=== PATIENT | female | born 1930 | race Caucasian/White ===

== ENCOUNTER → 2017-03-07 | Outpatient (CLI) | payer MEDICARE, BC ==
[~2017-03-07] MED LIST: ALDACTONE25 MG PO; ASPIRIN EC81 MG; ASPIRIN LO-DOSE81 MG PO; CENTRUM SILVER1 EAC4 PO; CENTRUM SILVER1 TAB PO; CITRACAL-VIT D1 EAC1 PO; COZAAR25 MG PO; ELIQUIS5 MG PO; LEVOTHROID (SY50 MCG PO; LIPITOR40 MG PO; MULTAQ400 MG PO; NORCO 5-325 TA1 EACH PO; NORVASC5 MG PO; PROLIA60 MG/ML IM; XALATAN2.5 ML OPHTH; ZOCOR40 MG PO
[2017-03-07 16:32] LABS: ALBUMIN 3.8 gm/dL (3.5-5.0); ANION GAP 14.1 (10.0-19.0); CREATININE 2.2 mg/dL (0.5-1.1); PHOSPHORUS 3.6 mg/dL (2.5-4.9); POTASSIUM 5.1 mMol/L (3.7-5.1)
== END | disposition disaster alternative care site (69) ==
LOC: LCNC 15:58
PROVIDERS: Internal Medicine Interventional Cardiology
DX: Z79.899 Other long term (current) drug therapy (principal)

== ENCOUNTER → 2017-03-22 | Day surgery (SDC) | payer MEDICARE, BC ==
[~2017-03-22] VITALS: Ht 160 cm; Wt 62.7 kg
--- NOTE | ~2017-03-22 | OR ---
PATIENT'S NAME: ANN MARIE VILLARREAL [facility] AGE: 86 Y [address] ROOM: [place] [address] LOCATION: [facility] [place] ADMIT DATE: 03/22/2017 OR/Procedure Report DISCHARGE DATE: FAMILY PHYSICIAN: MATT BRIDGES MD ATTENDING PHYSICIAN: Freddy Henley SURGEON: Freddy Henley MD RUBBER MOLDER: DATE OF PROCEDURE: 03/22/2017 PREOPERATIVE DIAGNOSIS: Incompletely excised squamous cell carcinoma, right lower extremity. POSTOPERATIVE DIAGNOSIS: Incompletely excised squamous cell carcinoma, right lower extremity. PROCEDURE PERFORMED: Excision of squamous cell carcinoma, right lower extremity, 4 cm diameter with split-thickness skin graft 24 cm2. INDICATION FOR PROCEDURE: Mrs. 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 The lesion is incompletely excised. The patient presents today for adequate excision of this area and coverage of the biopsy site. DESCRIPTION OF THE PROCEDURE: The patient had the site confirmed preoperatively. She was brought to the operating room and placed supine where IV sedation was administered. The patient was transferred to a left lateral decubitus position. The right lower extremity was prepped with Betadine and draped sterilely. 1% lidocaine with epinephrine was injected around the biopsy site which was on the lateral aspect of the right lower extremity. An incision was created around the lesion with at least 1 cm margins for adequate resection. The lesion was excised superficial to the fascia. The biopsy specimen was tagged for reference and sent to pathology for frozen section analysis which returned clear margins. A split-thickness skin graft was harvested from the right lateral upper thigh. This graft was applied to the biopsy site and secured with a bolster dressing. The donor site was covered with a bulky sterile dressing. The lower extremity was covered with a bulky dressing. The patient was awakened and returned to recovery in stable condition. Estimated blood loss less than 25 mL. FREDDY HENLEY MD PATIENT'S NAME: ANN MARIE VILLARREAL [facility] AGE: 86 Y [address] ROOM: [place] [address] LOCATION: [facility] ADMIT DATE: 03/22/2017 OR/Procedure Report DISCHARGE DATE: FAMILY PHYSICIAN: MATT BRIDGES MD ATTENDING PHYSICIAN: Freddy Henley/juan /[id number] d: 03/22/17 1201 t: 03/24/17 0933, OPERATIVE SUMMARY
== END | disposition disaster alternative care site (69) ==
LOC: GPOC 03-14 15:00 → GSDC 05:58 → GPOC 09:30
PROC: 0HRKX74 Replacement of Right Lower Leg Skin with Autologous Tissue Substitute, Partial Thickness, External Approach (ICD-10-PCS; principal; 2017-03-22)
DX: C44.722 Squamous cell carcinoma of skin of right lower limb, including hip (principal); I48.91 Unspecified atrial fibrillation; E03.9 Hypothyroidism, unspecified; K21.9 Gastro-esophageal reflux disease without esophagitis; N18.3 Chronic kidney disease, stage 3 (moderate); M81.0 Age-related osteoporosis without current pathological fracture; Z79.899 Other long term (current) drug therapy
CPT/HCPCS: J0171; J2001; J7030